=== PATIENT | female | born 1955 | race Caucasian/White ===

== ENCOUNTER → 2016-06-08 | Outpatient (CLI) | payer OTHER | LOC: FIMAGING 14:55 | PROVIDERS: ATTEND Internal Medicine | DX: M81.0 Age-related osteoporosis without current pathological fracture (principal); Z78.0 Asymptomatic menopausal state ==

== ENCOUNTER 2017-03-23 21:18 | Emergency (ER) | payer OTHER ==
[2017-03-23 21:29] VITALS: BP 119/82; PULSE 102; RESP 16; TEMP 98.8; O2SAT 94
--- NOTE | 2017-03-23 22:38 | EDPHY ---
H & P Stated Complaint: Twisted ankle, fell, swelling. HPI/ROS: Chief complaint: Right ankle injury History of present illness: This is a 61-year-old female who presents to the emergency department for a right ankle injury. She states earlier today she misstepped and rolled the ankle. Since then she has had pain and swelling to the outer aspect of the ankle. It makes it difficult to walk. No report of open wounds. No abnormal coolness or paresthesias in the leg. No other trauma reported. - Personal History Current Tetanus/Diphtheria Vaccine: Yes Current Tetanus Diphtheria and Acellular Pertussis (TDAP): Yes - Medical/Surgical History Hx Asthma: No Hx Chronic Respiratory Disease: No Hx Diabetes: No Hx Cardiac Disease: No Hx Renal Disease: No Hx Cirrhosis: No Hx Alcoholism: No Hx HIV/AIDS: No Hx Splenectomy or Spleen Trauma: No Other PMH: Breast CA, L mastectomy, osteporosis, thyroidectomy, thyroid CA, L ear hearing loss. - Social History Smoking Status: Never smoked - Physical Exam Exam: General appearance: Alert, nontoxic Musculoskeletal: There is edema to the lateral malleolus with associated tenderness. No crepitus. The rest of the ankle including over the Achilles is unremarkable. The knee, lower leg and foot are unremarkable. Vascular exam: Normal pulses and capillary refill in the foot Neurologic exam: The patient has normal sensation and motor function distal to the injury. Constitutional: Initial Vital Signs Temperature (C) 37.1 C 03/23/17 21:21 Heart Rate 102 H 03/23/17 21:21 Respiratory Rate 16 03/23/17 21:21 Blood Pressure 119/82 H 03/23/17 21:21 O2 Sat (%) 94 03/23/17 21:21 O2 Delivery Mode Room Air Allergies/Adverse Reactions: adhesive tape Allergy (Verified 03/23/17 21:30) pseudoephedrine [From Sudafed] Allergy (Verified 03/23/17 21:30) Home Medications: Medication Instructions Recorded Multivitamin (*) 03/23/17 Synthroid 03/23/17 Medical Decision Making - Diagnostics Imaging Results: Imaging Impressions Ankle X-Ray 03/23/17 21:38 Impression: Lateral soft tissue swelling without definite fracture. Procedures: Patient placed in an [place] wrap and Velcro stirrup splint. She remains neurovascularly intact. ED Course/Re-evaluation: Patient seen under the supervision of my secondary supervising physician Dr. Rebekah Tucker. Patient presents to the emergency department for a right ankle injury. The foot is neurovascularly intact. X-rays negative. Likely sprain/strain. No evidence of further trauma. Home care is discussed. Return precautions given. Differential Diagnosis: Included but not limited to contusion, sprain or strain, bony fracture, joint dislocation Departure - Departure Disposition: Home, Routine, Self-Care Clinical Impression: Ankle sprain Qualifiers: Encounter type: initial encounter Involved ligament of ankle: unspecified ligament Laterality: right Qualified Code(s): S93.401A - Sprain of unspecified ligament of right ankle, initial encounter Condition: Good Instructions: Ankle Sprain (ED), Ankle Stirrup Splint (ED) Additional Instructions: Follow-up with her primary care doctor or an orthopedic doctor for recheck next week Rest the injury as much as possible Elevate the injury as much as possible Use [place] wrap, stirrup splint is crutches as discussed Ice the injury, 20 min on, 3 times daily for the next 3 days, no heat until after 72 hr Use ibuprofen 600 mg 3 times a day for the next 2-3 days for symptom control If symptoms worsen or new symptoms develop return to the emergency room for recheck Referrals: Cherry Olivas MD [Primary Care Provider] - As per Instructions Stepan Calabrese MD [Medical Doctor] - As per Instructions
== END 2017-03-23 23:05 | disposition home or self-care (01) ==
DX: S93.401A Sprain of unspecified ligament of right ankle, initial encounter (principal); Z85.3 Personal history of malignant neoplasm of breast; X58.XXXA Exposure to other specified factors, initial encounter